=== PATIENT | female | born 1985 | race African-American/Black ===

== ENCOUNTER 2018-04-15 09:47 | Emergency (ER) | payer MEDICAID ==
[~2018-04-15] VITALS: Ht 165.1 cm; Wt 127.0 kg
[2018-04-15 09:56] VITALS: BP 145/104
--- NOTE | 2018-04-15 10:02 | NUR ---
PT AMBULATES TO BED 12
--- NOTE | 2018-04-15 10:05 | NUR ---
PATIENT PRESENTS TO ED WITH COMPLAINTS OF RIGHT LEG PAIN THAT HAS BEEN WORSENING FOR THE LAST 2 DAYS. PATIENT STATES PROBLEM IS ONGOING BUT GETTING WORSE. SKIN IS PINK/WARM/DRY; AAOX4 WITH EVEN AND STEADY GAIT; PT DENIES ANY FEVER, CP, SOB, OR COUGH AT THIS TIME; PATIENT STATES PAIN OF 10/10 AT THIS TIME; VSS; PATIENT POSITIONED FOR COMFORT, SITTING UP IN CHAIR. ER MD MADE AWARE OF PT STATUS.
--- NOTE | 2018-04-15 10:24 | NUR ---
DR BARRAGAN EVALUATING AT BEDSIDE
[2018-04-15] MEDS ORDERED: IBUPROFEN 400 MG TAB PO ONE (10:35)
--- NOTE | 2018-04-15 10:37 | NUR ---
XRAY AT BEDSIDE
--- NOTE | 2018-04-15 11:32 | NUR ---
Applied 20 inch ortho immobilizer to patients right knee, and given crutches. Crutches were given at appropriate height to the patient, education on proper use was given patient stated understanding. PMSC's assessed and within normal limits.
[2018-04-15 11:36] VITALS: BP 145/104
== END 2018-04-15 11:37 | disposition home or self-care (01) ==
LOC: MED 09:47
DX: S76.111A Strain of right quadriceps muscle, fascia and tendon, initial encounter (principal); I10 Essential (primary) hypertension; X58.XXXA Exposure to other specified factors, initial encounter; Y93.89 Activity, other specified; Y92.89 Other specified places as the place of occurrence of the external cause; Y99.8 Other external cause status
CPT/HCPCS: 29505; 73562; 99284; Q0092